=== PATIENT | female | born 1950 | race Hispanic/Latino ===

== ENCOUNTER 2018-05-22 10:01 | Outpatient (CLI) | payer MEDICARE, OTHER | END 2018-05-22 10:02 | disposition home or self-care (01) | LOC: LABHHL 10:01 | PROVIDERS: ATTEND Surgery | DX: L72.3 Sebaceous cyst (principal) | CPT/HCPCS: 87075; 87076; 87116; 87186 ==

== ENCOUNTER 2018-09-02 06:03 | Day surgery (SDC) | payer MEDICARE, OTHER ==
[~2018-09-02 06:03] MED LIST: ANCEF/STERILE WATER 2 GM/20 ML IV NR; LACTATED RINGERS 1,000 ML IV SCH
[2018-09-02] MEDS ORDERED: NACL BACTERIOSTATIC INFILTRATI ONE (07:01)
[2018-09-02] MEDS ORDERED: XYLOCAINE 1% 20 mL ONE (07:15)
[2018-09-02] MEDS ORDERED: MARCAINE 0.25% INFILTRATI ONE ×2 (07:16→08:22)
[2018-09-02] MEDS: VERSED IV NR ×2 (07:28→07:40)
[2018-09-02] MEDS ORDERED: SUBLIMAZE ONE (07:40)
[2018-09-02] MEDS ORDERED: VERSED ONE (07:40)
[2018-09-02] MEDS ORDERED: DIPRIVAN 10 MG/ML IV ONE (07:40)
[2018-09-02] MEDS ORDERED: XYLOCAINE MPF 2% ONE (07:40)
[2018-09-02] MEDS ORDERED: APRESOLINE ONE (08:09)
[2018-09-02] MEDS ORDERED: XYLOCAINE 1% 20 mL INFILTRATI ONE (08:22)
[2018-09-02] MEDS ORDERED: NACL 0.9% IR ONE (08:58)
--- NOTE | 2018-09-02 09:06 | Short Stay Summary ---
Short Stay Documentation Date of service: 09/02/18 - History H&P: obtained from office - Allergies and Medications Current Medications: Allergies codeine Allergy (Verified 08/26/18 17:02) AGITATION iodine Allergy (Verified 08/26/18 17:02) Swelling povidone-iodine [From Betadine] Allergy (Verified 08/26/18 17:02) Swelling prochlorperazine [From Compazine] Allergy (Verified 08/26/18 17:02) ABNORMAL MOUTH MOVEMENTS soap [From Betadine] Allergy (Verified 08/26/18 17:02) Swelling Home Medications Medication Instructions Recorded Confirmed Last Taken Type Ibuprofen [Advil 100 MG tab] 200 mg PO Q6H PRN 08/26/18 09/02/18 08/26/18 History Ibuprofen [Motrin 800 MG tab] 800 mg PO Q8HR PRN #20 tablet 09/02/18 Unknown Rx Active Medications Cefazolin Sodium (Ancef/Sterile Water 2 Gm/20 Ml) 2 gm IV PREOP NR Stop: 09/02/18 23:59 Lactated Ringer's (Lactated Ringers) 1,000 mls @ 100 mls/hr IV DIRECT RAAD Last Admin: 09/02/18 07:25 Dose: 100 mls/hr Documented by: Midazolam HCl (Versed) 2 mg IV PREOP NR Stop: 09/02/18 23:59 Last Admin: 09/02/18 07:40 Dose: 1 mg Documented by: - Brief post op/procedure progress note Date of procedure: 09/02/18 Pre-op diagnosis: Left breast sebaceous cyst of the upper inner quadrant Post-op diagnosis: same Procedure: Left breast sebaceous cyst excisional biopsy Anesthesia: local Findings: Left breast sebaceous cyst at the 9:00 position Surgeon: AYDEN COOLEY Estimated blood loss: minimal Pathology: list Specimen disposition: to lab Condition: stable - Disposition Condition at discharge: Good Disposition: DC-01 TO HOME OR SELFCARE Short Stay Discharge Plan Activity: other (no heavy lifting) Diet: regular Wound: keep clean and dry (may shower in 48 hours; wear breast binder; no baths) Follow up with: BRIGITTE FULLER MD [Primary Care Provider] - 7 Days AYDEN COOLEY MD [Staff Physician] - 7 Days Prescriptions: Ibuprofen [Motrin 800 MG tab] 800 mg PO Q8HR PRN #20 tablet PRN Reason: Pain , Severe (7-10)
--- NOTE | 2018-09-02 09:08 | Operative Report ---
Operative Report Operative Report: Date of Service: September 02, 2018 Preoperative diagnosis: Left breast upper inner quadrant sebaceous cyst Postoperative diagnosis: Same Procedure:Left breast sebaceous cyst excisional biopsy Surgeon: Felisa Houston M.D. Findings: Known left breast sebaceous cyst at 9:00 position close to sternum with excisional biopsy performed Complications: None Drains: None Estimated blood loss: Minimal Disposition: PACU in good condition Indication for operative procedure: This is a 68-year-old lady with known left breast sebaceous cyst at the 9:00 position with prior infection. Recommendation was to proceed with excisional biopsy given significant history of infection. Patient wished to proceed with the above procedure. The patient was procedure in detail: The patient was taken to the operating room and was laid supine. The left breast sebaceous cyst location was noted and confirmed using ultraasound. The left breast was prepped and draped in the normal sterile operative fashion. Timeout was performed. The left breast skin at sebaceouis cyst location was anesthesized with 1% lidocaine and quarter percent marcaine. A breast incision was made with a 15 blade knife encompassing the sebaceous cyst with dissection taken down to the subcutaneous tissues. The cyst was not encountered and was excised. The breast cavity was irrigated and suctioned. Hemostasis was obtained. The tissues were approximated and closed using interrupted 3-0 Vicryl and skin brought together and closed using a runnin g 4-0 Monocryl followed by dermabond. She tolerated surgery very well and was transported to PACU in good condition.
--- NOTE | 2018-09-02 09:21 | Anesthesia Day of Surgery ---
Anesthesia Day of Surgery - Day of Surgery Patient Examined: Yes Patient H&P Reviewed: Yes Patient is NPO: Yes
--- NOTE | 2018-09-02 09:21 | Anesthesia Consultation ---
Anesthesia Consult and Med Hx Date of service: 09/02/18 - Airway Anesthetic Teeth Evaluation: Good ROM Head & Neck: Adequate Mental/Hyoid Distance: Adequate Mallampati Class: Class II Intubation Access Assessment: Probably Good - Pulmonary Exam CTA: Yes - Cardiac Exam Cardiac Exam: RRR - Pre-Operative Health Status ASA Pre-Surgery Classification: ASA3 Proposed Anesthetic Plan: Local, MAC - Pulmonary Hx Smoking: Yes (STOPPED CIGARETTES X 15 YRS- NOW VAPES) Hx Asthma: No Hx Respiratory Symptoms: No (no recent cough or flu-like symptoms) Hx Sleep Apnea: No (CK PRE SCREEN LOW RISK) - Cardiovascular System Hx Hypertension: Yes (no official diagnosis but hypertensive in preop and states 160s/80s at home) Hx Heart Attack/AMI: No Hx Percutaneous Transluminal Coronary Angioplasty (PTCA): No - Central Nervous System Hx Seizures: No CVA: No - Gastrointestinal Hx Gastroesophageal Reflux Disease: Yes (diet controlled) - Endocrine Hx Renal Disease: No Hx Liver Disease: No Hx Insulin Dependent Diabetes: No Hx Non-Insulin Dependent Diabetes: No Hx Thyroid Disease: No - Other Systems Hx Obesity: No - Additional Comments Anesthesia Medical History Comments: Patient reports hx "white coat syndrome." Was on antihypertesives many years ago but was taken off 2/2 hypotension. Checks BP at home regularly and averages 160s/80s. Hypertensive in preop with no headache, chest pain, or neurologic symptoms. Will plan antihypertensives and anxiolytics prn. Patient encouraged to follow with PCP regarding likely untreated HTN.
[2018-09-02] MEDS ORDERED: ZOFRAN IV PRN (09:28)
[2018-09-02] MEDS ORDERED: IBUPROFEN PO PRN (09:28)
[2018-09-02] MEDS ORDERED: DILAUDID IV PRN (09:28)
--- NOTE | 2018-09-02 09:28 | Post Anesthesia Evaluation ---
- Post Anesthesia Evaluation Patient Participated: Yes Airway Patent: Yes Stable Respiratory Function: Yes Nausea/Vomiting: No Temp > 96.8F: Yes Pain Manageable: Yes Adequeate Hydration: Yes Anesthesia Complications: No
[2018-09-02 11:16] VITALS: BP 110/52
== END 2018-09-02 10:30 | disposition home or self-care (01) ==
LOC: OR 06:03
PROVIDERS: ATTEND Surgery
DX: L72.0 Epidermal cyst (principal); I10 Essential (primary) hypertension; K21.9 Gastro-esophageal reflux disease without esophagitis; F17.200 Nicotine dependence, unspecified, uncomplicated; Z79.899 Other long term (current) drug therapy; Z91.041 Radiographic dye allergy status; Z88.5 Allergy status to narcotic agent; Z88.8 Allergy status to other drugs, medicaments and biological substances; Z91.09 Other allergy status, other than to drugs and biological substances; Z98.49 Cataract extraction status, unspecified eye; Z90.710 Acquired absence of both cervix and uterus; Z98.891 History of uterine scar from previous surgery; Z80.0 Family history of malignant neoplasm of digestive organs; Z98.890 Other specified postprocedural states
CPT/HCPCS: 11403; 88304; J0360; J0690; J2250; J2405; J7120; J2704; J3010